=== PATIENT | male | born 1930 | race Caucasian/White ===

== ENCOUNTER → 2018-01-13 | Outpatient (CLI) | payer MEDICARE, BC ==
[~2018-01-13] MED LIST: AMLO5 PO; ASPI81CH; BUDE32NIS; CENTRUM SILVER1 EAC1; CHOL10002; FAMO20 PO; FERR325 PO; HYDR1TAB94 PO; IRBHYD150; IRON PO; Miralax17 GM PO; PANT40 PO; POTPHO PO; PRUNE JUICE; Pataday2.5 ML; SENN187 PO; SUCR1SU PO; TAMS.4ER PO; VERA240ERB
[2018-01-14 15:46] LABS: Protein, Urine Quantitative 17.3 mg/dL (0.0-11.9)
[2018-01-14 15:49] LABS: Microalbumin, Urine Quant. 60.5 mg/L (0.000-20.000)
== END | disposition home or self-care (01) ==
LOC: LAB SHORT 14:00 → LAB 14:00 → LAB FUT 01-12 10:05
PROVIDERS: Internal Medicine Nephrology
DX: N18.4 Chronic kidney disease, stage 4 (severe) (principal); D63.1 Anemia in chronic kidney disease; E55.9 Vitamin D deficiency, unspecified
CPT/HCPCS: 81050; 82043; 84156

== ENCOUNTER 2018-06-12 07:25 | Day surgery (SDC) | payer MEDICARE, BC | END 2018-06-12 22:36 | disposition home or self-care (01) | LOC: CT 07:25 | DX: C64.1 Malignant neoplasm of right kidney, except renal pelvis (principal); C78.6 Secondary malignant neoplasm of retroperitoneum and peritoneum; C78.5 Secondary malignant neoplasm of large intestine and rectum; Z87.891 Personal history of nicotine dependence | CPT/HCPCS: 50200; 77012 ==

== ENCOUNTER 2019-04-08 17:55 | Emergency (ER) | payer MEDICARE, BC ==
[~2019-04-08] VITALS: Ht 160 cm; Wt 59.9 kg
== END 2019-04-08 20:05 | disposition home or self-care (01) ==
LOC: ER 17:55
DX: S00.03XA Contusion of scalp, initial encounter (principal); Z88.0 Allergy status to penicillin; Z88.1 Allergy status to other antibiotic agents; Z88.8 Allergy status to other drugs, medicaments and biological substances; Z79.899 Other long term (current) drug therapy; W18.2XXA Fall in (into) shower or empty bathtub, initial encounter
CPT/HCPCS: 70450; 72125; 99284-25

== ENCOUNTER 2019-06-11 18:58 | Inpatient (IN) | payer MEDICARE, BC ==
[~2019-06-11] VITALS: Ht 160 cm; Wt 54.7 kg
[2019-06-11 19:28] LABS: BASOPHILS ABSOLUTE AUTO 0.04 K/mm3 (0.00-0.23); BASOPHILS PERCENT AUTO 0 % (0-2); EOSINOPHILS ABSOLUTE AUTO 0.11 K/mm3 (0.00-0.68); EOSINOPHILS PERCENT AUTO 1 % (0-6); Hematocrit 44.5 % (37.0-53.0); IMMATURE GRAN ABSOLUTE AUTO 0.05 K/mm3 (0.00-0.10); IMMATURE GRAN PERCENT AUTO 0 % (0-1); LYMPHOCYTES ABSOLUTE AUTO 1.78 K/mm3 (0.84-5.20); LYMPHOCYTES PERCENT AUTO 11 % (21-46); MONOCYTES ABSOLUTE AUTO 1.42 K/mm3 (0.16-1.47); MONOCYTES PERCENT AUTO 8 % (4-13); Mean Corpuscular HGB 29.6 pg (26.0-34.0); Mean Corpuscular HGB Conc 31.5 g/dL (31.5-36.5); Mean Corpuscular Volume 94 fL (80-100); Mean Platelet Volume 9.6 fL (9.1-12.4); NEUTROPHILS ABSOLUTE AUTO 13.53 K/mm3 (1.96-9.15); NEUTROPHILS PERCENT AUTO 80 % (41-73); Platelet Count 245 K/mm3 (150-400); RDW Standard Deviation 48.2 fL (35.1-46.3); Red Blood Cell Count 4.73 M/mm3 (4.30-5.90); White Blood Cell Count 16.93 K/mm3 (4.00-11.30)
[2019-06-11 19:38] LABS: Source, Urine Catheter
[2019-06-11 19:43] LABS: Bilirubin, Urine Neg (Neg); Blood, Urine 1+ (Neg); Glucose Qualitative, Urine Neg (Neg); Ketones, Urine Neg (Neg); Leukocyte Esterase, Urine Neg (Neg); Nitrite, Urine Neg (Neg); Protein, Urine 4+ (Neg); Urobilinogen, Urine NORM (Normal)
[2019-06-11 19:55] LABS: Appearance, Urine Cloudy (Clear); Color, Urine Yellow (P-Yellow)
[2019-06-11 19:57] LABS: Bacteria Rare /hpf; Red Blood Cells, Urine 0-2 /hpf (0-2); Squamous Epithelial Cells Not Seen /hpf (Few); White Blood Cells, Urine 0-2 /hpf (0-5)
[2019-06-11 20:02] LABS: Albumin, Blood 3.4 g/dL (3.4-5.0); Albumin/Globulin Ratio 0.9 (0.8-1.8); Bilirubin, Total 0.4 mg/dL (0.1-1.0); Bun/Creatinine Ratio 15.2 (12.0-20.0); Calcium, Blood 9.1 mg/dL (8.5-10.1); Creatinine, Blood 2.77 mg/dL (0.60-1.20); Globulin, Blood 3.9 g/dL (2.2-4.0); Potassium, Blood 4.2 mmol/L (3.5-5.5); Total Protein, Blood 7.3 g/dL (6.4-8.2)
[2019-06-12 05:37] LABS: BASOPHILS ABSOLUTE AUTO 0.05 K/mm3 (0.00-0.23); BASOPHILS PERCENT AUTO 0 % (0-2); EOSINOPHILS ABSOLUTE AUTO 0.08 K/mm3 (0.00-0.68); EOSINOPHILS PERCENT AUTO 1 % (0-6); Hematocrit 40.4 % (37.0-53.0); IMMATURE GRAN ABSOLUTE AUTO 0.03 K/mm3 (0.00-0.10); IMMATURE GRAN PERCENT AUTO 0 % (0-1); LYMPHOCYTES ABSOLUTE AUTO 1.81 K/mm3 (0.84-5.20); LYMPHOCYTES PERCENT AUTO 14 % (21-46); MONOCYTES ABSOLUTE AUTO 1.32 K/mm3 (0.16-1.47); MONOCYTES PERCENT AUTO 10 % (4-13); Mean Corpuscular HGB 30.3 pg (26.0-34.0); Mean Corpuscular HGB Conc 32.2 g/dL (31.5-36.5); Mean Corpuscular Volume 94 fL (80-100); Mean Platelet Volume 9.6 fL (9.1-12.4); NEUTROPHILS ABSOLUTE AUTO 9.76 K/mm3 (1.96-9.15); NEUTROPHILS PERCENT AUTO 75 % (41-73); Platelet Count 208 K/mm3 (150-400); RDW Standard Deviation 47.9 fL (35.1-46.3); Red Blood Cell Count 4.29 M/mm3 (4.30-5.90); White Blood Cell Count 13.05 K/mm3 (4.00-11.30)
[2019-06-12 05:53] LABS: Bun/Creatinine Ratio 14.9 (12.0-20.0); Calcium, Blood 8.5 mg/dL (8.5-10.1); Creatinine, Blood 2.68 mg/dL (0.60-1.20); Potassium, Blood 4.2 mmol/L (3.5-5.5)
--- NOTE | 2019-06-12 06:18 | NUR ---
SHIFT SUMMARY REPORT RECIEVED FROM LAURE CALLAHAN (ED). ARRIVED TO MEDICAL FLOOR VIA STRETCHER; LIFTING ASSISTANCE NEEDED. ORIENTED TO ROOM AND CALL SYSTEM. A/O, ABLE TO MAKE NEEDS KNOWN. COOPERATIVE WITH CARE. VERY [place]. LAYING IN BED WITHOUT ANY REQUESTS. NO C/O PAIN/DISCOMFORT. BED REMAINS IN LOWEST POSITION. CALL LIGHT AND BELONGINGS WITHIN REACH. WCTM. REPORT TO BAILEE CALLAHAN.
[2019-06-12] MEDS ORDERED: FINA5 PO (16:35)
[2019-06-12] MEDS ORDERED: Oyster Shell C500 MG PO (16:36)
--- NOTE | 2019-06-12 18:02 | NUR ---
PT IS AOX3 AND COOPERATIVE OF CARE. PT LUNG SOUNDS ARE COURSE AND FLUTTER VALVE HAS BEEN PLACED INTO USE. RT WAS ABLE TO WORK WITH PT ON THIS. PT IS A ONE PERSON WITH WALKER TO RESTROOM. PT HAS BEEN RESTING AND SLEEPING A LOT TODAY. NO DISTRESS NOTED WILL CONTIUE TO MONITOR.
[2019-06-12 20:07] LABS: Adenovirus Not Detected (NOT DETECT); Bordetella pertussis Not Detected (NOT DETECT); Chlamydophila pneumoniae Not Detected (NOT DETECT); Coronavirus 229E Not Detected (NOT DETECT); Coronavirus HKU1 Not Detected (NOT DETECT); Coronavirus NL63 Not Detected (NOT DETECT); Coronavirus OC43 Not Detected (NOT DETECT); Human Metapneumovirus Not Detected (NOT DETECT); Human Rhinovirus/Enterovirus Not Detected (NOT DETECT); Influenza A Not Detected (NOT DETECT); Influenza A/2009-H1 Not Detected (NOT DETECT); Influenza A/H1 Not Detected (NOT DETECT); Influenza A/H3 Not Detected (NOT DETECT); Influenza B Not Detected (NOT DETECT); Mycoplasma pneumoniae Not Detected (NOT DETECT); Parainfluenza Virus 1 Not Detected (NOT DETECT); Parainfluenza Virus 2 Not Detected (NOT DETECT); Parainfluenza Virus 3 Not Detected (NOT DETECT); Parainfluenza Virus 4 Not Detected (NOT DETECT); Respiratory Syncytial Virus Not Detected (NOT DETECT)
--- NOTE | 2019-06-13 04:38 | NUR ---
NOC SHIFT SUMMARY PT HAS BEEN PLEASANT AND COOPERATIVE WITH CARE. HERE FOR SEPSIS SECONDARY TO PNEUMONIA. AUDIBLE GURGLES WITH BREATH SOUNDS. HE HAS SUCTION IN HAND. GURGLES DO CLEAR SOMEWHAT WITH COUGHING, THOUGH WHEN ASKED TO COUGH IT IS WEAK. BLOOD CX PRELIM SHOWES GRAM POS COCCI IN CLUSTERS, INFORMED HOSPITALIS. NO ORDERS GIVEN. TREATED FOR NAUSEA TO GOOD EFFECT THIS NIGHT. PT PRESENTLY SLEEPING AND APPEARS IN NO ACUTE DISTRESS. VSS. WILL CONTINUE TO MONITOR.
[2019-06-13 05:05] LABS: BASOPHILS ABSOLUTE AUTO 0.02 K/mm3 (0.00-0.23); BASOPHILS PERCENT AUTO 0 % (0-2); EOSINOPHILS ABSOLUTE AUTO 0.01 K/mm3 (0.00-0.68); EOSINOPHILS PERCENT AUTO 0 % (0-6); Hematocrit 38.8 % (37.0-53.0); Hemoglobin 12.4 g/dL (13.5-17.5); IMMATURE GRAN ABSOLUTE AUTO 0.04 K/mm3 (0.00-0.10); IMMATURE GRAN PERCENT AUTO 0 % (0-1); LYMPHOCYTES ABSOLUTE AUTO 1.56 K/mm3 (0.84-5.20); LYMPHOCYTES PERCENT AUTO 15 % (21-46); MONOCYTES ABSOLUTE AUTO 0.96 K/mm3 (0.16-1.47); MONOCYTES PERCENT AUTO 9 % (4-13); Mean Corpuscular HGB 29.4 pg (26.0-34.0); Mean Corpuscular Volume 92 fL (80-100); NEUTROPHILS ABSOLUTE AUTO 8.14 K/mm3 (1.96-9.15); NEUTROPHILS PERCENT AUTO 76 % (41-73); Platelet Count 182 K/mm3 (150-400); RDW Coefficient Variation 13.9 % (11.7-14.2); RDW Standard Deviation 46.6 fL (35.1-46.3); Red Blood Cell Count 4.22 M/mm3 (4.30-5.90); White Blood Cell Count 10.73 K/mm3 (4.00-11.30)
[2019-06-13 05:24] LABS: Albumin, Blood 2.3 g/dL (3.4-5.0); Anion Gap 9 mmol/L (6-16); Blood Urea Nitrogen 39 mg/dL (8-24); Bun/Creatinine Ratio 14.2 (12.0-20.0); CO2, Blood 22 mmol/L (21-32); Calcium, Blood 8.8 mg/dL (8.5-10.1); Chloride, Blood 112 mmol/L (98-108); Creatinine, Blood 2.75 mg/dL (0.60-1.20); Glomerular Filtration Rate 23 (60-); Glucose, Blood 110 mg/dL (70-99); Phosphorus, Blood 3.1 mg/dL (2.5-4.9); Sodium, Blood 143 mmol/L (136-145)
--- NOTE | 2019-06-13 17:36 | NUR ---
PT AOX3 AND COOPERATIVE OF ALL CARE. PT STILL SOUNDS VERY WET AND COURSE THROUGHOUT LUNGS. FLUTTER VALVE AND SUCTIONS SEEM TO HELP. PT UP WITH GAIT BELT AND WALKER WITH ONE PERSON. PT TAKING NAPS MOST OF THE DAY. WILL CONTINUE TO MONITOR.
--- NOTE | 2019-06-14 04:48 | NUR ---
NOC SHIFT SUMMARY PT IS PLEASANT AND COOPERATIVE WITH CARE. LUNGS STILL SOUND WET/COURSE. HE IS VERY TIRE AND SLEEPS MOST OF THE TIME. TREATED FOR NAUSEA TO GOOD EFFECT. VSS. NO ACUTE CHANGES NOTED THIS NIGHT. WILL CONTINUE TO MONITOR.
[2019-06-14 09:19] LABS: BASOPHILS ABSOLUTE AUTO 0.02 K/mm3 (0.00-0.23); BASOPHILS PERCENT AUTO 0 % (0-2); EOSINOPHILS ABSOLUTE AUTO 0.16 K/mm3 (0.00-0.68); EOSINOPHILS PERCENT AUTO 2 % (0-6); Hematocrit 41.5 % (37.0-53.0); Hemoglobin 13.3 g/dL (13.5-17.5); IMMATURE GRAN ABSOLUTE AUTO 0.02 K/mm3 (0.00-0.10); IMMATURE GRAN PERCENT AUTO 0 % (0-1); LYMPHOCYTES ABSOLUTE AUTO 2.05 K/mm3 (0.84-5.20); LYMPHOCYTES PERCENT AUTO 27 % (21-46); MONOCYTES ABSOLUTE AUTO 0.59 K/mm3 (0.16-1.47); MONOCYTES PERCENT AUTO 8 % (4-13); Mean Corpuscular HGB 29.6 pg (26.0-34.0); Mean Corpuscular Volume 92 fL (80-100); Mean Platelet Volume 10.1 fL (9.1-12.4); NEUTROPHILS ABSOLUTE AUTO 4.73 K/mm3 (1.96-9.15); NEUTROPHILS PERCENT AUTO 62 % (41-73); Platelet Count 206 K/mm3 (150-400); RDW Coefficient Variation 14.2 % (11.7-14.2); RDW Standard Deviation 48.2 fL (35.1-46.3); Red Blood Cell Count 4.49 M/mm3 (4.30-5.90); White Blood Cell Count 7.57 K/mm3 (4.00-11.30)
[2019-06-14 09:46] LABS: Albumin, Blood 2.4 g/dL (3.4-5.0); Anion Gap 7 mmol/L (6-16); Blood Urea Nitrogen 38 mg/dL (8-24); CO2, Blood 24 mmol/L (21-32); Calcium, Blood 9.4 mg/dL (8.5-10.1); Chloride, Blood 111 mmol/L (98-108); Creatinine, Blood 2.93 mg/dL (0.60-1.20); Glomerular Filtration Rate 22 (60-); Glucose, Blood 145 mg/dL (70-99); Phosphorus, Blood 2.8 mg/dL (2.5-4.9); Sodium, Blood 142 mmol/L (136-145)
--- NOTE | 2019-06-14 17:53 | NUR ---
Initial Visit: Palliative Care Consult for Advanced Care Planning. Pt is A&Ox4 and reports a tolerable 7/10 pain in his neck and back. Pt denies dyspnea and anxiety. Mild dyspnea noted when Pt speaks in longer sentences. Engaged in therapeutic discussion regarding advanced care planning. Pt reports he lives alone in an apartment and practices [employer]. Pt reports at baseline he is independent of his ADLs. He admits to have recent multiple falls and is agreeable to SNF for rehabilitation if recommended. 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 Pt reports his last visit with oncologist he attempted chemotherapy and was not able to tolerate treatment. Pt reports given a two year prognosis in 2018. Discussed hospice as an option and Pt appears receptive to the idea but changes subject. Received verbal permission from Pt to call and speak with his niece Ness. Pt reports no concerns at this time. Called and spoke with Pt's niece Ness and discussed goals of care including hospice as an option. Ness is receptive of conversation. Ness reports having a loved one in recent past who received hospice care and states she is familiar with hospice philosophy. Encouraged Ness to have further discussion with Pt and either PCP or Dr Bella regarding hospice referral. Discussed disease process and the possibilty of Pt needing assistance with care in his home at some point in disease process. Ness expresses appreciation. Left palliative care contact information with Ness. Spoke with Pt's bedside nurse Hemalatha and she reports no concerns at this time. Palliative Care will remain available.
--- NOTE | 2019-06-15 05:03 | NUR ---
SHIFT SUMMARY: PT PLEASANT AND COOPERATIVE WITH CARE. HERE FOR PNEUMONIA. AUDIBLE MOIST COUGH, WITH FREQUENT SUCTIONING NOTED. MUCUS IS THICK YELLOW TO BROWN IN COLOR. HE IS ABLE TO SUCTION SELF WITH NO PROBLEMS, SATS REMAINED WNL WITH USE OF O2. VS HAVE REMAINED STABLE. MEDS WERE GIVEN PER EMAR. IV REMAINED PATENT AND IS CURRENTLY SL. DENIED ANY CHEST PAIN OR DISCOMFORT THIS SHIFT. WILL REPORT TO DAY SHIFT RN.
[2019-06-15 05:10] LABS: BASOPHILS ABSOLUTE AUTO 0.04 K/mm3 (0.00-0.23); BASOPHILS PERCENT AUTO 1 % (0-2); EOSINOPHILS ABSOLUTE AUTO 0.29 K/mm3 (0.00-0.68); EOSINOPHILS PERCENT AUTO 4 % (0-6); Hematocrit 38.5 % (37.0-53.0); Hemoglobin 12.3 g/dL (13.5-17.5); IMMATURE GRAN ABSOLUTE AUTO 0.02 K/mm3 (0.00-0.10); IMMATURE GRAN PERCENT AUTO 0 % (0-1); LYMPHOCYTES ABSOLUTE AUTO 2.03 K/mm3 (0.84-5.20); LYMPHOCYTES PERCENT AUTO 28 % (21-46); MONOCYTES ABSOLUTE AUTO 0.75 K/mm3 (0.16-1.47); MONOCYTES PERCENT AUTO 10 % (4-13); Mean Corpuscular HGB 29.4 pg (26.0-34.0); Mean Corpuscular HGB Conc 31.9 g/dL (31.5-36.5); Mean Corpuscular Volume 92 fL (80-100); Mean Platelet Volume 10.1 fL (9.1-12.4); NEUTROPHILS ABSOLUTE AUTO 4.26 K/mm3 (1.96-9.15); NEUTROPHILS PERCENT AUTO 58 % (41-73); Platelet Count 238 K/mm3 (150-400); RDW Standard Deviation 46.7 fL (35.1-46.3); Red Blood Cell Count 4.19 M/mm3 (4.30-5.90); White Blood Cell Count 7.39 K/mm3 (4.00-11.30)
[2019-06-15 05:41] LABS: Albumin, Blood 2.2 g/dL (3.4-5.0); Anion Gap 8 mmol/L (6-16); Blood Urea Nitrogen 37 mg/dL (8-24); Bun/Creatinine Ratio 13.1 (12.0-20.0); CO2, Blood 22 mmol/L (21-32); Calcium, Blood 8.9 mg/dL (8.5-10.1); Chloride, Blood 112 mmol/L (98-108); Creatinine, Blood 2.82 mg/dL (0.60-1.20); Glomerular Filtration Rate 23 (60-); Glucose, Blood 95 mg/dL (70-99); Phosphorus, Blood 3.1 mg/dL (2.5-4.9); Potassium, Blood 3.9 mmol/L (3.5-5.5); Sodium, Blood 142 mmol/L (136-145)
--- NOTE | 2019-06-15 17:16 | NUR ---
SHIFT SUMMARY: PT IS A/O TO SELF, SITUATION AND PLACE THIS SHIFT WITH NO C/O PAIN. PT HAS ORAL SUCTION AT BEDSIDE FOR SPUTUM/SECRETIONS. PT AMBULATES WELL WITH FWW AND USES TOILETING FOR VOIDING. PERIPHERAL LINE IS SALINE LOCKED. PT HAS BEEN SLEEPING ON AND OFF THROUGHOUT THE DAY AND IS ABLE TO MAKE HIS NEEDS KNOWN.
--- NOTE | 2019-06-15 20:55 | NUR ---
ASSUMED CARE OF THE PATIENT. PATIENT WAS RESTING COMFORTABLY IN ROOM, SUCTION HOOKED UP AND RUNNING FOR THE PATIENT USE. LUNG SOUNDS ARE COURSE IN UPPER LOBES, NEEDS TO COUGH REALLY WELL TO CLEAR, BUT IS UNABLE TO GET SECREATIONS COMPLETLY UP. MOVING LITTLE AT A TIME. HR REGULAR SINUS RHYTHEM. BTX4 DENIES ANY COMPLANTS OR CONCERNS. WILL CONTINUE TO MONTIOR.
--- NOTE | 2019-06-16 05:00 | NUR ---
SHIFT SUMMARY: MATHEW HAD A VERY PEACEFUL NIGHT. HE HAD NO ACUTE CHANGES OR CONCERNS THIS SHIFT. SLEPT WELL THROUGHOUT THE NIGHT, WITH GETTING UP X2 FOR LOOSE BM, SOFT PUDDING LIKE. IV INFUSED ANTIBOTICS WITH NO PROBLEMS. SL NOW. MEDS WERE GIVEN PER EMAR. DENIED ANY PAIN OR DISCOMFORT. CALL LIGHT HAS REMAINED IN REACH. WILL REPORT TO DAY SHIFT RN.
[2019-06-16] MEDS ORDERED: Florastor250 MG PO (13:12)
[2019-06-16] MEDS ORDERED: ALBU2.5V5 INH (13:13)
[2019-06-16] MEDS ORDERED: LEVFLO500 PO (13:16)
--- NOTE | 2019-06-16 16:20 | NUR ---
PT DCD TO [facility]. REPORT CALLED TO DEVEN OSBORNE. PT WAS TRANSPORTED BY [facility] WITH ALL OF HIS BELONGINGS. IV REMOVED WITHOUT ISSUE. ORDERS AND PACKET SENT WITH [facility]IG[facility] REPRESENTATIVE.
== END 2019-06-16 16:32 | DRG 871 ==
LOC: ER 18:58 → MEDS 06-12 03:39 → ENPENDDIS 06-16 12:32 → MEDS 06-16 16:32
PROVIDERS: Family Medicine; Physician Assistant; ADMIT Hospitalist
DX: A41.9 Sepsis, unspecified organism (principal); J18.1 Lobar pneumonia, unspecified organism; N18.4 Chronic kidney disease, stage 4 (severe); I12.9 Hypertensive chronic kidney disease with stage 1 through stage 4 chronic kidney disease, or unspecified chronic kidney disease; D63.1 Anemia in chronic kidney disease; I08.3 Combined rheumatic disorders of mitral, aortic and tricuspid valves; H91.10 Presbycusis, unspecified ear; Z90.5 Acquired absence of kidney; Z85.528 Personal history of other malignant neoplasm of kidney; Z87.891 Personal history of nicotine dependence; Z88.0 Allergy status to penicillin; Z88.8 Allergy status to other drugs, medicaments and biological substances; Z79.899 Other long term (current) drug therapy
CPT/HCPCS: 0099U; 36415; 71046; 80048; 80053; 80069; 81001; 83605; 85025; 87040; 92610; 96361; 96365; 96367; 96375; 97110; 97116; 97162; 97166; 97530; 97535; 98960; 99284-25; A9270; J0456; J0696; J1644; J1956; J2405; J7030; J7050

== ENCOUNTER → 2019-07-24 | Outpatient (CLI) | payer MEDICARE, BC ==
[~2019-07-24] MED LIST changes: +ALBU2.5V5 INH; +FINA5 PO; +Florastor250 MG PO; +LEVFLO500 PO; +Oyster Shell C500 MG PO
[2019-07-24 16:51] LABS: BASOPHILS ABSOLUTE AUTO 0.05 K/mm3 (0.00-0.23); BASOPHILS PERCENT AUTO 1 % (0-2); EOSINOPHILS ABSOLUTE AUTO 0.33 K/mm3 (0.00-0.68); EOSINOPHILS PERCENT AUTO 4 % (0-6); Hematocrit 34.2 % (37.0-53.0); Hemoglobin 11.1 g/dL (13.5-17.5); IMMATURE GRAN ABSOLUTE AUTO 0.02 K/mm3 (0.00-0.10); IMMATURE GRAN PERCENT AUTO 0 % (0-1); LYMPHOCYTES ABSOLUTE AUTO 2.56 K/mm3 (0.84-5.20); LYMPHOCYTES PERCENT AUTO 28 % (21-46); MONOCYTES ABSOLUTE AUTO 0.75 K/mm3 (0.16-1.47); MONOCYTES PERCENT AUTO 8 % (4-13); Mean Corpuscular HGB 28.8 pg (26.0-34.0); Mean Corpuscular HGB Conc 32.5 g/dL (31.5-36.5); Mean Corpuscular Volume 89 fL (80-100); Mean Platelet Volume 9.6 fL (9.1-12.4); NEUTROPHILS ABSOLUTE AUTO 5.41 K/mm3 (1.96-9.15); NEUTROPHILS PERCENT AUTO 59 % (41-73); Platelet Count 251 K/mm3 (150-400); RDW Coefficient Variation 14.7 % (11.7-14.2); RDW Standard Deviation 47.7 fL (35.1-46.3); Red Blood Cell Count 3.86 M/mm3 (4.30-5.90); White Blood Cell Count 9.12 K/mm3 (4.00-11.30)
[2019-07-24 17:01] LABS: Albumin, Blood 2.8 g/dL (3.4-5.0); Albumin/Globulin Ratio 0.8 (0.8-1.8); Bilirubin, Total 0.2 mg/dL (0.1-1.0); Bun/Creatinine Ratio 23.4 (12.0-20.0); Calcium, Blood 8.8 mg/dL (8.5-10.1); Creatinine, Blood 2.74 mg/dL (0.60-1.20); Globulin, Blood 3.5 g/dL (2.2-4.0); Potassium, Blood 4.2 mmol/L (3.5-5.5); Total Protein, Blood 6.3 g/dL (6.4-8.2)
== END | disposition home or self-care (01) ==
LOC: LAB SHORT 16:42 → LAB EV 16:42
PROVIDERS: Physician Assistant
DX: R60.9 Edema, unspecified (principal)
CPT/HCPCS: 80053; 83880; 85025

== ENCOUNTER 2019-11-12 07:24 | Emergency (ER) | payer MEDICARE, BC ==
[~2019-11-12] VITALS: Ht 177.8 cm; Wt 81.7 kg
[2019-11-12 07:52] LABS: BASOPHILS ABSOLUTE AUTO 0.01 K/mm3 (0.00-0.23); BASOPHILS PERCENT AUTO 0 % (0-2); EOSINOPHILS ABSOLUTE AUTO 0.04 K/mm3 (0.00-0.68); EOSINOPHILS PERCENT AUTO 1 % (0-6); Hematocrit 34.3 % (37.0-53.0); Hemoglobin 11.2 g/dL (13.5-17.5); IMMATURE GRAN ABSOLUTE AUTO 0.01 K/mm3 (0.00-0.10); IMMATURE GRAN PERCENT AUTO 0 % (0-1); LYMPHOCYTES ABSOLUTE AUTO 2.57 K/mm3 (0.84-5.20); LYMPHOCYTES PERCENT AUTO 40 % (21-46); MONOCYTES ABSOLUTE AUTO 0.96 K/mm3 (0.16-1.47); MONOCYTES PERCENT AUTO 15 % (4-13); Mean Corpuscular HGB 30.5 pg (26.0-34.0); Mean Corpuscular HGB Conc 32.7 g/dL (31.5-36.5); Mean Corpuscular Volume 94 fL (80-100); Mean Platelet Volume 9.9 fL (9.1-12.4); NEUTROPHILS ABSOLUTE AUTO 2.86 K/mm3 (1.96-9.15); NEUTROPHILS PERCENT AUTO 44 % (41-73); Platelet Count 180 K/mm3 (150-400); RDW Coefficient Variation 13.8 % (11.7-14.2); RDW Standard Deviation 47.7 fL (35.1-46.3); Red Blood Cell Count 3.67 M/mm3 (4.30-5.90); White Blood Cell Count 6.45 K/mm3 (4.00-11.30)
[2019-11-12 08:15] LABS: Albumin, Blood 3.3 g/dL (3.4-5.0); Albumin/Globulin Ratio 0.9 (0.8-1.8); Bilirubin, Total 0.3 mg/dL (0.1-1.0); Calcium, Blood 8.5 mg/dL (8.5-10.1); Globulin, Blood 3.7 g/dL (2.2-4.0); Potassium, Blood 4.4 mmol/L (3.5-5.5); Troponin I 0.026 ng/mL (0.000-0.040)
[2019-11-12] MEDS ORDERED: AZIT500 PO (09:00)
--- NOTE | 2019-11-12 15:44 | NUR ---
Called to meet with pt and his niece. pt stable does not want to be admitted. His niece had a binder of notes and forms. She is very attentive and cares for him deeply. Pt is very hard of hearing and does not have his hearing aids in. He carefully answered questions but directed me to his niece for plan of care. He lives in an apartment alone. she comes and takes him to staore and has a pill minder for him. [place] 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 pt struggling with more fatigue and failure to thrive. Niece states with the increased heaing loss he is more withdrawn. Niece states he was not able to tolerate chemo and did not want anymore care. He is adamant he does not want dialysis. Niece is showing significant caregiver stress. She has had some recent losses of a and a sick son. She contacted the [place] for help but has not heard back. We reviewed assisted living, foster care, and returning to SNF for nursing home care. We reviewed hospice for supportive care and to reduce suffering. Contacted and home day care provider [facility] for assitance. Pt discharged home and [facility] followed up with [place] and called niece. Follow up call with niece she heard from [place]. Expressed that she had agood talk with her uncle and he is ready to move to assited living. [facility] hospice notifed her and will contact primary care.
== END 2019-11-12 10:15 | disposition home or self-care (01) ==
LOC: ER 07:24
PROVIDERS: Emergency Medicine
DX: J02.9 Acute pharyngitis, unspecified (principal); C34.90 Malignant neoplasm of unspecified part of unspecified bronchus or lung; R91.1 Solitary pulmonary nodule; I12.9 Hypertensive chronic kidney disease with stage 1 through stage 4 chronic kidney disease, or unspecified chronic kidney disease; N18.4 Chronic kidney disease, stage 4 (severe); Z88.0 Allergy status to penicillin; Z88.1 Allergy status to other antibiotic agents; Z88.8 Allergy status to other drugs, medicaments and biological substances; Z79.899 Other long term (current) drug therapy; Z79.51 Long term (current) use of inhaled steroids; Z87.891 Personal history of nicotine dependence
CPT/HCPCS: 36415; 71046; 80053; 83880; 84484; 85025; 93005; 93010; 96365; 99284-25; J0696